=== PATIENT | female | born 1975 | race Caucasian/White ===

== ENCOUNTER 2017-05-29 17:10 | Emergency (ER) | payer SELFPAY ==
[~2017-05-29] VITALS: Ht 170.2 cm; Wt 73.0 kg
[2017-05-29 17:12] VITALS: BP 120/76; PULSE 108; RESP 20; TEMP 99.2; O2SAT 98
--- NOTE | 2017-05-29 18:34 | PD ---
HPI Chief Complaint: Psychiatric Symptoms Time Seen by Provider: 18:22 Travel History International Travel<30 days: No Contact w/Intl Traveler<30days: No Traveled to known affect area: No History of Present Illness HPI This is a 42-year-old female with history of depression and bipolar disorder who presents voluntarily requesting psychiatric evaluation. She reports that she moved here from [place] 2 weeks ago, has not yet established care with a local psychiatrist. She reports that multiple life stressors have been making her depressed and suicidal. She would like to obtain some psychiatric help because she feels that she has a lot of live for, she has small children that she cares for. She endorses occasional marijuana use, denies any other drug use. Denies any homicidal ideation, hallucinations. She has no other complaints at this time. [facility] Past Medical History Narrative Medical Depression, bipolar disorder Bipolar Disorder: Yes ?: Not Past Surgical History Hysterectomy: Yes Social History Alcohol Use: No Tobacco Use: Yes Substance Use: Yes Allergies-Medications (Allergen,Severity, Reaction): Coded Allergies: No Known Allergies (Unverified , 05/29/17) Review of Systems Except as stated in HPI: all other systems reviewed are Neg Physical Exam Narrative GENERAL: Well-developed well-nourished female in no acute distress SKIN: Warm and dry. HEAD: Atraumatic. Normocephalic. EYES: Pupils equal and round. No scleral icterus. No injection or drainage. ENT: No nasal bleeding or discharge. Mucous membranes pink and moist. NECK: Trachea midline. No JVD. CARDIOVASCULAR: Regular rate and rhythm. No murmur appreciated. RESPIRATORY: No accessory muscle use. Clear to auscultation. Breath sounds equal bilaterally. GASTROINTESTINAL: Abdomen soft, non-tender, nondistended. Hepatic and splenic margins not palpable. MUSCULOSKELETAL: No obvious deformities. No clubbing. No cyanosis. No edema. NEUROLOGICAL: Awake and alert. No obvious cranial nerve deficits. Motor grossly within normal limits. Normal speech. PSYCHIATRIC: Depressed, anxious, insight and judgment appear normal. Data Data Last Documented VS Vital Signs Date Time Temp Pulse Resp B/P Pulse Ox O2 Delivery O2 Flow Rate FiO2 05/29/17 17:12 99.2 108 20 120/76 98 Room Air Orders Complete Blood Count With Diff (05/29/17 18:16) Comprehensive Metabolic Panel (05/29/17 18:16) Ed Urine Pregnancytest Poc (05/29/17 18:16) Psych Screen (05/29/17 18:16) Drug Screen, Random Urine (05/29/17 18:16) Alcohol (Ethanol) (05/29/17 18:16) Salicylates (Aspirin) (05/29/17 18:16) Tylenol (Acetaminophen) (05/29/17 18:16) Labs Laboratory Tests Test 05/29/17 19:10 White Blood Count 7.9 TH/MM3 Red Blood Count 4.34 MIL/MM3 Hemoglobin 13.4 GM/DL Hematocrit 39.7 % Mean Corpuscular Volume 91.3 FL Mean Corpuscular Hemoglobin 30.9 PG Mean Corpuscular Hemoglobin 33.9 % Concent Red Cell Distribution Width 13.3 % Platelet Count 291 TH/MM3 Mean Platelet Volume 8.1 FL Neutrophils (%) (Auto) 49.3 % Lymphocytes (%) (Auto) 37.9 % Monocytes (%) (Auto) 8.1 % Eosinophils (%) (Auto) 4.0 % Basophils (%) (Auto) 0.7 % Neutrophils # (Auto) 3.9 TH/MM3 Lymphocytes # (Auto) 3.0 TH/MM3 Monocytes # (Auto) 0.6 TH/MM3 Eosinophils # (Auto) 0.3 TH/MM3 Basophils # (Auto) 0.1 TH/MM3 CBC Comment DIFF FINAL Differential Comment Sodium Level 140 MEQ/L Potassium Level 3.9 MEQ/L Chloride Level 110 MEQ/L Carbon Dioxide Level 24.0 MEQ/L Anion Gap 6 MEQ/L Blood Urea Nitrogen 9 MG/DL Creatinine 0.61 MG/DL Estimat Glomerular Filtration 108 ML/MIN Rate Random Glucose 88 MG/DL Calcium Level 8.3 MG/DL Aspartate Amino Transf 20 U/L (AST/SGOT) Albumin 3.4 GM/DL Salicylates Level 4.1 MG/DL Urine Opiates Screen NEG Urine Barbiturates Screen NEG Urine Amphetamines Screen POS Urine Benzodiazepines Screen NEG Urine Cocaine Screen NEG Urine Cannabinoids Screen POS Ethyl Alcohol Level LESS THAN 3 MG/DL MDM Medical Decision Making Medical Screen Exam Complete: Yes Emergency Medical Condition: Yes Medical Record Reviewed: Yes Differential Diagnosis Major depressive disorder, depressive disorder not otherwise specified, adjustment reaction, bipolar disorder, substance induced mood disorder, acute psychosis Narrative Course 42-year-old female who reports a history of bipolar disorder and depression. She presents voluntarily requesting evaluation for depression and suicidal thoughts. Mental health screening discussed with the patient. Psychiatric screen ordered. Lab work has been reviewed. Drug screen is positive for amphetamines and cannabinoids. Otherwise unremarkable. Medical cleared for psychiatric disposition. Diagnosis Primary Impression: Suicidal ideation Migue [place] May 29, 2017 18:34
[2017-05-29 19:41] LABS: AUTOMATED NEUTROPHIL # 3.9 TH/MM3 (1.8-7.7); BASOPHIL # 0.1 TH/MM3 (0-0.2); BASOPHIL % 0.7 % (0.0-2.0); EOSINOPHIL # 0.3 TH/MM3 (0-0.4); HEMATOCRIT 39.7 % (35.0-46.0); HEMO FLAGS DIFF FINAL; LYMPH % 37.9 % (9.0-44.0); MEAN CELL VOLUME 91.3 FL (80.0-100.0); MEAN CORPUSCULAR HEMOGLOBIN 30.9 PG (27.0-34.0); MEAN CORPUSCULAR HGB CONC 33.9 % (32.0-36.0); MONO % 8.1 % (0.0-8.0); NEUT % 49.3 % (16.0-70.0); PLATELET COUNT 291 TH/MM3 (150-450); RED BLOOD COUNT 4.34 MIL/MM3 (4.00-5.30); RED CELL DISTRIBUTION WIDTH 13.3 % (11.6-17.2); WHITE BLOOD COUNT 7.9 TH/MM3 (4.0-11.0)
[2017-05-29 19:46] LABS: AMPHETAMINE, URINE POS (NEG); BARBITURATES, URINE NEG (NEG); COCAINE, URINE NEG (NEG)
[2017-05-29 19:55] LABS: ANION GAP 6 MEQ/L (5-15); AST (GOT) 20 U/L (15-37); BLOOD UREA NITROGEN 9 MG/DL (7-18); CHLORIDE 110 MEQ/L (98-107); GLOMERULAR FILTRATION RATE 108 ML/MIN (>89); POTASSIUM 3.9 MEQ/L (3.5-5.1); SODIUM (NA) 140 MEQ/L (136-145)
[2017-05-29 19:59] LABS: ACETAMINOPHEN LESS THAN 2.0 MCG/ML (10.0-30.0); ALKALINE PHOSPHATASE 62 U/L (45-117); ALT (GPT) 25 U/L (10-53); TOTAL BILIRUBIN ADULT 0.3 MG/DL (0.2-1.0)
[2017-05-29] MEDS ORDERED: BUPR100CR PO (20:28)
[2017-05-29] MEDS ORDERED: CLON0.5T PO (20:28)
[2017-05-29] MEDS ORDERED: CYMB60CA PO (20:28)
[2017-05-29] MEDS ORDERED: LEVO.125 PO (20:28)
[2017-05-29] MEDS ORDERED: ADDE20 PO (20:28)
[2017-05-29] MEDS ORDERED: ARIP1TAB5 PO (20:28)
[2017-05-29 22:50] VITALS: BP 127/78; PULSE 79; RESP 18; TEMP 97.7; O2SAT 97
[2017-05-30 06:11] VITALS: BP 109/66; PULSE 63; RESP 18; O2SAT 99
[2017-05-30 10:01] VITALS: BP 109/66; TEMP 98.1
== END 2017-05-30 10:04 | disposition home or self-care (01) ==
LOC: NEPC 17:10 → NEPJ 05-30 10:04
DX: R45.851 Suicidal ideations (principal); F31.9 Bipolar disorder, unspecified; F32.89 Other specified depressive episodes; Z72.0 Tobacco use
CPT/HCPCS: 80053; 80307; 84703; 85025; 99284